=== PATIENT | female | born 1970 | race Caucasian/White ===

== ENCOUNTER 2020-06-19 05:02 | Observation (INO) ==
--- NOTE | 2020-06-14 09:17 | Anesthesiology Consultation ---
Date of Service June 14, 2020 Assessment & Plan (1) Encounter for pre-operative examination: Per assessment on 06/06: Travel screen negative. No known COVID-19 positive contacts or current COVID-19 related symptoms. Patient was personally COVID + (report in [employer])- this was preop testing in which patient was and remained asymptomatic. Surgeon arranged preop COVID test (done 06/13)- results pending in [facility]. Chart Review Chart Review: Acceptable Risk for Surgery and Patient NOT seen in Pre Admission Testing History Surgery Operation Date: 06/19/20 07:15 Proposed Procedures p Right Lateral Total Hip Arthroplasty - Sonu Lamas, Height/Weight Height: 5 ft 4 in Weight: 107.955 kg Allergies Allergy/AdvReac Type Severity Reaction Status Date / Time No Known Allergies Allergy Verified 06/06/20 11:37 Medications Home Medications Medication Instructions Recorded Confirmed Last Taken acetaminophen 650 mg 650 mg PO BID tab 03/22/20 06/06/20 Unknown tablet,extended release cetirizine 10 mg capsule 10 mg PO QAM 03/22/20 06/06/20 Unknown fluticasone propionate 50 1 spray INTRANASAL QAM 03/22/20 06/06/20 Unknown mcg/actuation nasal spray,suspension [id number] 1 tab PO BID 03/22/20 06/06/20 Unknown 750 mg-100 mg-125 mg-1.65 mg tablet mecobalamin (vitamin B12) 5,000 5,000 mcg PO 4XWK 03/22/20 06/06/20 Unknown mcg disintegrating tablet tramadol 50 mg tablet 50 mg PO BID PRN 03/22/20 06/06/20 Unknown turmeric root extract 500 mg 500 mg PO QAM 03/22/20 06/06/20 Unknown capsule vit A 1,000 unit-C 200 mg-E 60 1 tab PO QAM 03/22/20 06/06/20 Unknown unit-lutein 2 mg and minerals tablet celecoxib 200 mg capsule 200 mg PO BID #60 cap 05/30/20 06/06/20 Unknown Past Medical History Medical History (Updated 06/14/20 @ 09:12 by Ermelinda Jimenez) History of COVID-19 04/10/20 (+ COVID preop test/asymptomatic) Morbid obesity Osteoarthritis of right hip Temporomandibular joint disorder left side clicking, no locking Past Family History Family History Other No family history of adverse response to anesthesia Past Surgical History Surgical History H/O melanoma excision back (2011) H/O tubal ligation H/O: Mass of right lower extremity s/p removal (benign) Social History Smoking Status: Current every day smoker Smoking cigarettes per day: 10 cigs/day Hx Alcohol Use: Yes Alcohol type: beer and hard liquor alcohol intake frequency: a few times a month Hx Substance Use: No Testing Laboratory Results 06/13/20 WBC 5.46 H/H 14.6/43.4 PLATELETS 243 SODIUM 138 POTASSIUM 4.2 CHLORIDE 106 CO2 25 BUN 16 CREATININE 0.97 GLUCOSE 103 04/04/20 PT 10.4 PTT 27.6 INR 1.0 T&S A+Ab- Electrocardiogram Date: 04/04/20 + SB @ (58) Chest X-Ray Date: 04/04/20 PA and lateral chest radiographs are obtained. Impression no priors The cardiomediastinal silhouette is unremarkable. The lungs and pleural spaces are clear. There is no pneumothorax. The bony thorax appears intact. Surgical clips are noted in the right axilla. IMPRESSION: No active disease in the chest.
--- NOTE | 2020-06-14 14:51 | History & Physical Report ---
Date of Service June 14, 2020 Assessment & Plan (1) Osteoarthritis of right hip: We will proceed with a right lateral total hip arthroplasty. Postoperatively she will be started on aspirin for DVT prophylaxis and kept overnight in the hospital for postoperative medical management. She plans to use home nursing upon discharge. History of Present Illness Chief Complaint: Osteoarthritis of the right hip . Primary Care Provider: Diana Colon DO Eleanor is a pleasant 50-year-old female who is been dealing with a 2-year history of increasing right hip pain. Is become really bad over the last year. She has recently lost 50 pounds but she is having trouble losing any more weight. X- rays and clinical examination have been diagnostic for advanced osteoarthritis of the right hip. After failing extensive conservative treatment, she has elected to proceed with a right total hip arthroplasty. . Allergies Allergy/AdvReac Type Severity Reaction Status Date / Time No Known Allergies Allergy Verified 06/06/20 11:37 Home Medications Medication Instructions Recorded Confirmed Type acetaminophen 650 mg 650 mg PO BID tab 03/22/20 06/06/20 History tablet,extended release cetirizine 10 mg capsule 10 mg PO QAM 03/22/20 06/06/20 History fluticasone propionate 50 1 spray INTRANASAL QAM 03/22/20 06/06/20 History mcg/actuation nasal spray,suspension hbrzqcyvrmx-[id number]-hyal 1 tab PO BID 03/22/20 06/06/20 History 750 mg-100 mg-125 mg-1.65 mg tablet mecobalamin (vitamin B12) 5,000 5,000 mcg PO 4XWK 03/22/20 06/06/20 History mcg disintegrating tablet tramadol 50 mg tablet 50 mg PO BID PRN 03/22/20 06/06/20 History turmeric root extract 500 mg 500 mg PO QAM 03/22/20 06/06/20 History capsule vit A 1,000 unit-C 200 mg-E 60 1 tab PO QAM 03/22/20 06/06/20 History unit-lutein 2 mg and minerals tablet celecoxib 200 mg capsule 200 mg PO BID #60 cap 05/30/20 06/06/20 Rx Past Med/Surg History Medical History History of COVID-19 11/30/20 (+ COVID preop test/asymptomatic) Morbid obesity Osteoarthritis of right hip Temporomandibular joint disorder left side clicking, no locking Surgical History H/O melanoma excision back (2011) H/O tubal ligation H/O: Mass of right lower extremity s/p removal (benign) Family History Other No family history of adverse response to anesthesia Social History Smoking Status: Current every day smoker Cigarettes Per Day: 10 cigs/day; Second Hand Exposure: Yes (MOTHER SMOKED); Hx Alcohol Use: Yes Alcohol type: beer and hard liquor Hx Substance Use: No Preferred Language: Bermudian Communication Ability: Effective Woven Label Designer Required: No Beliefs That Will Affect Care: None Current Living Situation: Spouse and Family Feels Safe at Home: Yes Assistive Devices: Glasses Review of Systems All systems reviewed & are unremarkable except as noted in HPI & below. Physical Exam On physical examination of the right hip, she walks with a very antalgic gait. She cannot lie her right hip flat on the table. She has pain with any range of motion. She has severe pain with forced internal and external rotation.. Results & Data Results & Data Laboratory Results . Diagnostic Findings X-rays of the right hip do show advanced osteoarthritis with joint space narrowing, osteophyte formation, and [id number] articulation. . PG Care Time/CCT Total # of Minutes Spent Total Time Spent with Patient: Total time spent is greater than 50% in coordination of care (as documented) at patient's floor/unit and/or counseling patient: Coding Level of Care Code None Diagnoses Osteoarthritis of right hip M16.11
[2020-06-19] MEDS ORDERED: ROPIVACAINE 0.5% HCL/PF 150 MG, BUPIVACAINE 0.75% MPF 20 ML, EPINEPHrine 30MG/30ML (OR ... INSTIL SCH (06:00)
[2020-06-19] MEDS ORDERED: dexAMETHasone 4 MG TAB PO SCH (06:00)
[2020-06-19] MEDS ORDERED: ACETAMINOPHEN 500 MG TAB PO SCH (06:00)
[2020-06-19] MEDS ORDERED: FAMOTIDINE 20 MG TAB PO SCH (06:00)
[2020-06-19] MEDS ORDERED: LR 60ML/HR IV SCH (06:00)
[2020-06-19] MEDS ORDERED: ceFAZolin 2000MG 2,000 MG/15 ML SYR IV SCH (06:00)
[2020-06-19] MEDS ORDERED: TRANEXAMIC ACID 1,000 MG **IV Pre-op IV SCH (06:00)
[2020-06-19] MEDS ORDERED: TRANEXAMIC ACID 1,000 MG **IV Intra-op IV SCH (06:00)
[2020-06-19] MEDS ORDERED: GABAPENTIN 900 MG DOSE PO SCH (06:00)
[2020-06-19] MEDS ORDERED: LR 500ML BOLUS, THEN 15ML/HR IV SCH (06:00)
[2020-06-19] MEDS ORDERED: BUPIVACAINE 0.5 % 5 MG/1 ML PF 10ML VIAL ONE (06:24)
[2020-06-19] MEDS ORDERED: fentaNYL citrate 100 MCG/2 ML VIAL ONE (06:43)
[2020-06-19] MEDS ORDERED: MIDAZOLAM HCL 1 MG/ML 2ML VIAL ONE ×3 (06:43→08:37)
--- NOTE | 2020-06-19 06:56 | History & Physical Bridge Note ---
Date of Service June 19, 2020 History & Physical Bridge Note I have examined the patient, reviewed the History & Physical and in the interval since the performance of the History & Physical I have noted the following changes of clinical significance: no changes noted
[2020-06-19] MEDS ORDERED: ORTHO JOINT ANESTHETIC ONE (06:57)
[2020-06-19] MEDS ORDERED: LIDOCAINE HCL 2% 2 ML VIAL/AMP(20MG/ML) INFIL ONE (07:42)
[2020-06-19] MEDS ORDERED: PHENYLEPHRINE 100MCG/ML 5ML SYR ONE (07:42)
[2020-06-19] MEDS ORDERED: PROPOFOL IV EMULSION 10 MG/ML 20 ML VIAL IV ONE ×3 (07:42→09:00)
--- NOTE | 2020-06-19 09:04 | XRay Report ---
XR hip RT 1V CLINICAL HISTORY: AP DONE XTL COMPARISON: Right hip radiographs March 08, 2020. FINDINGS: Cross table lateral radiographs of the right hip arthroplasty were obtained. Alignment is anatomic. No acute fracture is noted. There are no unexpected radiopaque foreign bodies. IMPRESSION: Expected findings during total right hip arthroplasty. ACT 112: Negative or not required by law. Electronically signed by: Lawrence Martinez M.D. 06/19/2020 9:02 AM
--- NOTE | 2020-06-19 09:34 | Operative Report ---
PG Post Operative Report Pre & Post Diagnosis Operation Date: 06/19/20 07:15 Pre-Op Diagnosis: Degenerative Joint Disease Right Hip Post-Op Diagnosis: Degenerative Joint Disease Right Hip I identified the patient and participated in the time-out.: Yes Procedure Operation Date: 06/19/20 07:15 Actual Procedures p Right Lateral Total Hip Arthroplasty(Right) - Sonu Lamas DO Surgeon Sonu Lamas DO [employer] Consultant Sonu Helton PAC Estimated Blood Loss 250 Findings Consistent with Post-Op Diagnosis Specimens Right femoral head Complications none Disposition Disposition: Recovery Room Indications Eleanor is a pleasant 50-year-old female who presented my office with chronic increasing right hip and groin pain. X-rays clinical examination were diagnostic for advanced osteoarthritis of the right hip. After failing conservative treatment, she elected proceed with a right total hip arthroplasty. Description of Procedure Implants used I used a Osbaldo Avenir total hip arthroplasty system with a size 0 collared stem, a 48 mm Biomet G7 cup with a 25mm screw, an E1 polyethylene liner, a 32 mm ceramic head with a 0 neck. Eleanor arrived at the hospital for the above procedure. She was seen in the preoperative holding area and the operative extremity was identified and signed. She was given a spinal anesthetic, a preoperative antibiotic, and TXA. She was then taken back to the operating room and laid on the table in the supine position. She was given basic sedation. She was then put in the lateral decubitus position. The hip was then prepped and draped in sterile fashion. A timeout was done and the patient and the operative extremity was properly identified. A lateral approach was used. Dissection was taken down through the fat to the fascia. The IT band was incised longitudinally. The anterior third of the abductors were then tenotomized off the greater trochanter. The capsule was then excised and the hip was dislocated. The femoral neck was then resected and the head was removed. The acetabulum was then exposed. Time was spent doing a circumferential capsular labral release. Sequential reaming of the acetabulum up to a size 47 reamer was done. A 48 mm G7 cup was then impacted into place. A manhole covered was placed. A single 25 mm screw was placed. The E1 polyliner was then snapped into place. The surrounding soft tissues were injected with 100 cc of an orthopedic pain control cocktail. The proximal femur was then exposed. Sequential broaching to a size 0 broach was done. A standard neck was placed and a 0 head. The hip was then reduced. A single flat plate x- ray was taken and I was happy with the overall size of the femoral implant and the alignment of the components. The hip was then dislocated. The trials were removed. The final size 0 Osbaldo Avenir collared stem was then impacted into place. A size 32 mm head with a 0 neck was then impacted into place. The hip was then reduced. The hip was brought through a full range of motion and felt to be stable. The wound was then irrigated with a 3-minute Betadine lavage. The abductors were then tenodesed back to the greater trochanter with transosseous FiberWire sutures and side to side Vicryl sutures. The IT band was then closed with #1 Vicryl. The deep fat layer was closed with 2 rows of #1 Vicryl suture. The skin was then closed with 2-0 Vicryl and hunter. She was placed in a soft dressing. She was then transferred to a hospital bed and taken to the postanesthesia care unit in stable condition. She tolerated the procedure well. Sonu Helton PA-C, was present for the entire procedure. He was critical for patient positioning, prepping, draping, retraction exposure, wound closure and application of sterile dressing. I attest to the content of the Intraoperative Record and any orders documented therein. Any exceptions are noted below.
--- NOTE | 2020-06-19 09:59 | XRay Report ---
AP PELVIS, CROSSTABLE LATERAL RIGHT HIP History: Right total hip arthroplasty. Degenerative arthritis. Postop. FINDINGS: The patient is status post a right total hip arthroplasty. The hardware is intact. No fract ure or dislocation. Skin hunter are in place. IMPRESSION: Right total hip arthroplasty. No evidence for hardware complication ACT 112: Negative or not required by law. Electronically signed by: Felix Ware M.D. 06/19/2020 9:57 AM
[2020-06-19] MEDS ORDERED: bisacodyL 10 MG SUPP PR PRN (10:19)
[2020-06-19] MEDS ORDERED: ACETAMINOPHEN 1,000 MG/100 ML VIAL IV PRN (10:19)
[2020-06-19] MEDS ORDERED: METOCLOPRAMIDE HCL INJ 5 MG/ML 2 ML VIAL IV PRN (10:19)
[2020-06-19] MEDS ORDERED: MAGNESIUM HYDROXIDE SUSP 30 ML UDC PO PRN (10:19)
[2020-06-19] MEDS ORDERED: ONDANSETRON INJ 2 MG/ML 2 ML VIAL IV PRN (10:19)
[2020-06-19] MEDS ORDERED: NALOXONE HCL 0.4 MG/1 ML VIAL/CARP IV PRN (10:19)
[2020-06-19] MEDS ORDERED: HYDROmorphone INJ 0.5 MG/0.5 ML SYR IV PRN (10:19)
[2020-06-19] MEDS: SODIUM CHLORIDE 0.9% 1000ML 1,000 ML IV SCH ×2 (12:11→23:08)
[2020-06-19] MEDS: KETOROLAC 30 MG/ML VIAL IV SCH ×3 (12:11→22:55)
--- NOTE | 2020-06-19 13:42 | Anesthesiology Progress Note ---
Date of Service June 19, 2020 Anesthesia Post Procedure Vital Signs Vital Signs: Temp Pulse Pulse Resp BP Pulse Ox 06/19/20 12:09 36.3 C L 63 16 117/87 97 06/19/20 11:16 54 L 16 101/67 98 06/19/20 10:49 58 L 16 103/69 96 06/19/20 10:20 36.3 C L 56 L 16 105/74 92 06/19/20 10:10 52 L 14 111/66 94 06/19/20 10:00 36.2 C L 62 13 126/61 95 06/19/20 09:50 59 L 13 99/56 L 94 06/19/20 09:40 56 L 13 97/63 L 97 06/19/20 09:31 36.2 C L 79 21 111/66 98 06/19/20 06:26 36.5 C 70 70 20 120/57 L 100 06/19/20 05:22 36.4 C L 83 20 127/74 97 Pain Intensity Right Hip: Pain Intensity: 5 Transfer of Care Handoff Completed per policy Notes Mental Status: alert / awake / arousable Patient Amnestic to Procedure: Yes Nausea / Vomiting: adequately controlled Pain: adequately controlled Airway Patency, RR, SpO2: stable & adequate BP & HR: stable & adequate Hydration State: stable & adequate Neuraxial Anesthesia: was administered and sensory block is resolving Anesthetic Complications: no major complications apparent and Pt Satisfied with anesthetic care
[2020-06-19] MEDS: ceFAZolin 2000MG 2,000 MG/15 ML SYR IV SCH ×2 (16:10→22:55)
[2020-06-19] MEDS: DOCUSATE SODIUM 100 MG CAP PO SCH (19:46)
[2020-06-19] MEDS: ASPIRIN 81 MG ECTAB PO SCH (19:46)
[2020-06-19] MEDS: oxyCODONE HCL IR 5 MG TAB (IMMEDIATE RELEASE) PO PRN ×2 (19:47→22:54)
[2020-06-19] MEDS ORDERED: SENNA 8.6 MG TAB PO SCH (21:00)
[2020-06-20] MEDS: oxyCODONE HCL IR 5 MG TAB (IMMEDIATE RELEASE) PO PRN ×3 (02:58→11:06)
[2020-06-20] MEDS: KETOROLAC 30 MG/ML VIAL IV SCH ×2 (04:59→11:07)
[2020-06-20 06:11] LABS: Hematocrit (blood only) 35.6 % (37-47); Hemoglobin 12.1 g/dL (12.0-16.0); Immature Granulocytes # (auto) 0.01 K/uL (0.00-0.02); Immature Granulocytes % (auto) 0.1 %; Lymphocytes # (auto) 1.08 K/uL (1.2-3.4); Lymphocytes % (auto) 9.5 %; Mean Corpuscular Hemoglobin 31.8 pg (25-34); Mean Corpuscular Volume 93.7 fL (80-100); Mean Platelet Volume 9.6 fL (7.4-10.4); Monocytes % (auto) 7.9 %; Neutrophils # (auto) 9.42 K/uL (1.4-6.5); Neutrophils % (auto) 82.5 %; Platelet Count 228 K/uL (130-400); RDW Coefficient of Variation 13.8 % (11.5-14.5); RDW Standard Deviation 47.7 fL (36.4-46.3); White Blood Count 11.41 K/uL (4.8-10.8)
--- NOTE | 2020-06-20 06:33 | Orthopedic Progress Note ---
Date of Service June 20, 2020 Assessment & Plan (1) Status post right hip replacement: Overall she is doing very well. She does not need much pain in the right hip. She will be seen by physical therapy today for ambulation and range of motion exercises. She is on aspirin for DVT prophylaxis. She can be discharged home later today. She will follow-up with orthopedics in 2 weeks. Misael Webster was seen and examined at bedside this morning. Overall she is doing very well. She is a little bit of soreness in the hip but not too bad. She has been up and ambulating to the bathroom. She has no complaints.. Review of Systems All systems reviewed & are unremarkable except as noted in HPI & below. Physical Exam On physical examination of the right hip, the dressing is clean and dry. Her leg lengths are equal. She has active dorsiflexion plantarflexion of the right ankle.. Results & Data Results & Data Laboratory Results H & H 06/20/20 Range/Units 05:36 Hgb 12.1 (12.0-16.0) g/dL Hct 35.6 L (37-47) % . Diagnostic Findings Postoperative x-rays of the right hip show the prosthesis to be in anatomic alignment without any evidence of fracture, dislocation, or loosening. . PG Care Time/CCT Total # of Minutes Spent Total Time Spent with Patient: Total time spent is greater than 50% in coordination of care (as documented) at patient's floor/unit and/or counseling patient: Coding Level of Care Code 48527 Post Operative Follow-Up Diagnoses Status post right hip replacement Z96.641
--- NOTE | 2020-06-20 06:34 | Discharge Summary ---
Date of Service June 20, 2020 Principal Diagnosis Same as "Discharge Diagnosis" noted below under Discharge Instructions. Discharge Exam On physical examination of the right hip, the dressing is clean and dry. Her leg lengths are equal. She has active dorsiflexion plantarflexion of the right ankle.. Discharge Data Consultations 06/20/20 08:00 Consult Case Management - Discharge Planning Routine Procedures Performed Operation Date: 06/19/20 07:15 Actual Procedures p Right Lateral Total Hip Arthroplasty(Right) - Sonu Lamas DO Hospital Course (1) Status post right hip replacement: On June 19, 2020 Eleanor arrived at [facility] and underwent a right hip replaced without complication. She had a spinal anesthetic. Postoperatively she was started on aspirin for DVT prophylaxis and transferred to the general orthopedic floors. Her hospital course was uneventful. On postop day #1 her H&H was stable and her pain was well controlled. She was able to participate well with physical therapy doing ambulation and range of motion exercises. She was then discharged home. She will follow-up with orthopedics in 2 weeks. PG Care Time/CCT Total # of Minutes Spent Total Time Spent with Patient: Total time spent is greater than 50% in coordination of care (as documented) at patient's floor/unit and/or counseling patient: Discharge Plan Discharge Items Patient Disposition: Home - Home Health Services Reason For Visit: Degenerative Joint Disease Right Hip Discharge Diagnosis: Right hip replacement Activity: As commented below Non-emergency contact: Surgeon Call non-emergency contact if: your wound has increased redness and your wound has increased drainage Follow-up/Referrals: Diana Colon DO [Primary Care Provider] - Diet: Regular Addtl Attending Provider Instructions: Activity and Therapy Recommendations: * If you are using [facility] then therapy will be provided at your home until they feel you have accomplished all of your goals. * If you are using [facility] then Physical Therapy will be provided until they feel you are ready to start Outpatient Physical Therapy. * If you are not using home therapy then Outpatient Physical Therapy should start about 3-5 days from your day of surgery. Therapy will last about 6-10 weeks * You were shown a series of exercises in the hospital. Do these exercises three times each day including the exercises you were shown in physical therapy. * Get up and walk several times each day.~ For the first four weeks, try not to stand or walk for more than one hour at a time. If you do stand or walk for more than one hour, you will not hurt anything, but your leg will likely swell.~~ * As you feel comfortable, you may change from the walker or crutches to a cane and~then to independent walking. Medications: * Narcotic You will likely be sent home from the hospital with a prescription for the narcotic pain medication that worked best throughout your stay. * Aspirin Most patients will be required to take Aspirin 81mg twice a day for 6 weeks after surgery. This is obtained [id number] and a prescription is not necessary. * Other medications may be prescribed for specific circumstances. If you have any questions, please call the office at . * Resume previous home medications unless otherwise instructed TEDs/Elastic Stockings: The white elastic stockings help limit swelling and prevent blood clots from forming in your legs. The more you wear them, the more they work. Wear them for six weeks. Dressing Care: He may do daily dry dressing changes. If the incision is not draining then you may leave the hunter open to air. If there is a little bit of drainage or if the hunter are getting stuck on your clothing then cover the incision with a dry dressing. The hunter will be removed at your 2 week follow-up appointment. Showering: You may shower 5 days after the day of surgery. Let soapy water run over the hunter and pat them dry. Do not scrub or soak the incision. Things To Watch For: * Drainage from the incision site that occurs more than one week after your surgery. * Increased redness at the incision site. * Fever above 102 degrees Fahrenheit. * Unusual chest pain or shortness of breath. * Call [facility] at with any of the above problems Follow-Up Visit: Follow-up with Dr. Lamas's PA (Sonu Helton) 2-3 weeks after your day of surgery. He will remove your hunter and answer any questions. If you have any additional questions or concerns, Dr Lamas is usually in the office at the same time and will be available An appointment was probably scheduled when you signed-up for surgery in the office. If you have any questions call Office Instructions: More detailed instructions as well as Frequently Asked Questions were provided in a folder by our office when you signed-up for surgery. Please review these instructions when you get home. If you have any further questions or concerns, please feel free to call the of ti at [phone] Pending Studies at Discharge: No Stand-Alone Forms: My [facility] [employer] [facility], Smoking Cessation Medications and DC Order Prescriptions: New oxycodone 5 mg Tablet 5 mg PO Q4H PRN (Reason: pain) Qty: 60 RF: 0 aspirin 81 mg Tablet,Delayed Release (Dr/Ec) 81 mg PO BID 42 Days Qty: 0 RF: 0 Continued celecoxib 200 mg capsule 200 mg PO BID Qty: 60 RF: 2 fluticasone propionate 50 mcg/actuation spray,suspension 1 spray intranasal QAM RF: 0 Vision Formula (with lutein) 1,000 unit-200 mg-60 unit-2 mg tablet 1 tab PO QAM RF: 0 mecobalamin (vitamin B12) 5,000 mcg tablet,disintegrating 5,000 mcg PO 4XWK RF: 0 turmeric root extract 500 mg capsule 500 mg PO QAM RF: 0 Glucos Chond Cplx Advanced 750 mg-100 mg- 125 mg-1.65 mg tablet 1 tab PO BID RF: 0 Allergy Relief (cetirizine) 10 mg capsule 10 mg PO QAM RF: 0 acetaminophen [Tylenol Arthritis Pain] 650 mg tablet extended release 650 mg PO BID RF: 0 Discontinued tramadol 50 mg tablet 50 mg PO BID PRN (Reason: Pain) RF: 0 Discharge Orders: Discharge Order (Routine); Ordered 06/20/20 Ordered By: Sonu Lamas Admission Data Admit Date/Time: 06/19/20 09:34 Attending Provider: Sonu Lamas Admit Provider: Snou Lamas Primary Care Provider: Diana Colon Other Providers: [facility],Home Healthcare
[2020-06-20 06:43] LABS: Calcium 9.5 mg/dl (8.5-10.1); Creatinine Clr Calc Pharmacy 91.2 ml/min; Potassium 4.1 mmol/L (3.5-5.1)
[2020-06-20] MEDS ORDERED: dexAMETHasone 4 MG TAB PO SCH (08:00)
[2020-06-20] MEDS ORDERED: CETIRIZINE HCL 10 MG TABLET PO SCH (09:00)
[2020-06-20] MEDS ORDERED: MULTIVITAMIN TAB PO SCH (09:00)
[2020-06-20] MEDS ORDERED: FLUTICASONE PROPIONATE NA SPR 16 GM BTL SCH (09:00)
[2020-06-20] MEDS: ASPIRIN 81 MG ECTAB PO SCH (09:18)
[2020-06-20] MEDS: DOCUSATE SODIUM 100 MG CAP PO SCH (09:18)
== END 2020-06-20 12:06 | disposition home health service (06) ==
LOC: ASU 05:02 → 3E 05:02
DX: M16.11 Unilateral primary osteoarthritis, right hip; Z68.41 Body mass index [BMI] 40.0-44.9, adult; F17.210 Nicotine dependence, cigarettes, uncomplicated; Z79.899 Other long term (current) drug therapy; Z11.59 Encounter for screening for other viral diseases; E66.01 Morbid (severe) obesity due to excess calories; Z86.16 Personal history of COVID-19